=== PATIENT | female | born 1980 | race Caucasian/White ===

== ENCOUNTER 2022-11-09 13:52 | Inpatient (IN) | payer MEDICAID ==
[~2022-11-09] VITALS: Ht 162.6 cm; Wt 57.6 kg
[2022-11-09 13:58] VITALS: BP 126/76
--- NOTE | 2022-11-09 14:11 | NUR ---
AMB TO BED 10
[2022-11-09] MEDS ORDERED: NACL 0.9% 1,000 ML IV SCH (14:20)
--- NOTE | 2022-11-09 14:20 | NUR ---
42 yo/f biba w c/o of feelinig faint but did not faint, + x4 episodes of vomiting w sob, +dizziness, + gen weak. denies chest pain, ongoing nausea. pt adds yesterday she had a fever, and flu like symptoms none today. vss. pmh:denies allergies: penicillin home albuterol treatment at approx 1230 today. Addendum: 11/09/22 at 1656 by [email or web address] pt aox4, vss.
[2022-11-09] MEDS ORDERED: ONDANSETRON 4 MG/2 ML VIAL IVP ONE (14:55)
[2022-11-09 15:08] LABS: BILIRUBIN,URINE NEGATIVE (NEGATIVE); BLOOD, URINE 3+ (NEGATIVE); COLOR,URINE YELLOW (YELLOW); LEUKOCYTE ESTERASE ,URINE 1+ (NEGATIVE); NITRITE, URINE NEGATIVE (NEGATIVE); UGLUCOSE NEGATIVE (NEGATIVE)
[2022-11-09 15:11] LABS: ANION GAP 12.1 (8-16); CREATININE 0.7 mg/dL (0.6-1.3); POTASSIUM 3.1 mmol/L (3.5-5.1); TOTAL BILIRUBIN 0.4 mg/dL (0.0-1.0)
[2022-11-09 15:13] LABS: APPEARANCE,URINE HAZY (CLEAR)
--- NOTE | 2022-11-09 15:16 | NUR ---
COVID AND FLU SENT TO LAB.
[2022-11-09 15:36] LABS: BASOPHILS # (AUTO) 0.1 K/uL (0.00-0.22); BASOPHILS % (AUTO) 0.6 % (0.0-2.0); EOSINOPHILS # (AUTO) 0.2 K/uL (0-0.4); EOSINOPHILS % (AUTO) 1.7 % (0.0-4.0); HEMATOCRIT 31.3 % (36-48); LYMPHOCYTES # (AUTO) 1.2 K/uL (2.5-16.5); LYMPHOCYTES % (AUTO) 12.2 % (20.5-51.1); MEAN CORPUSCULAR HEMOGLOBIN 25 pg (27-31); MEAN CORPUSCULAR HGB CONC 32 g/dL (33-37); MEAN CORPUSCULAR VOLUME 77.3 fL (80-94); MONOCYTES # (AUTO) 0.5 K/uL (0.8-1.0); MONOCYTES % (AUTO) 5.4 % (1.7-9.3); NEUTROPHILS # (AUTO) 7.8 K/uL (1.8-7.7); NEUTROPHILS % (AUTO) 80.1 % (42.2-75.2); PLATELET COUNT (AUTO) 384 K/uL (140-450); RED BLOOD CELL COUNT(AUTO) 4.05 MIL/uL (4.20-5.40); WHITE BLOOD COUNT (AUTO) 9.7 K/uL (4.8-10.8)
[2022-11-09 15:41] LABS: RBC,URINE 50-80 /HPF (0-5)
[2022-11-09] MEDS ORDERED: POTASSIUM CHLORIDE 20% 40 MEQ/15 ML UDC PO ONE (15:50)
[2022-11-09] MEDS ORDERED: NACL 0.9% 1,000 ML IV ONE (16:55)
[2022-11-09] MEDS ORDERED: cefTRIAXone 1,000 MG VIAL ONE (17:29)
[2022-11-09] MEDS ORDERED: LEVOFLOXACIN 750 MG/D5W PREMIX 150 ML IV ONE (17:40)
[2022-11-09] MEDS ORDERED: MORPHINE SULFATE 2 MG/ML SYR IVP PRN (18:00)
[2022-11-09] MEDS ORDERED: POTASSIUM CHLORIDE 10 MEQ TABER PO PRN (18:00)
[2022-11-09] MEDS ORDERED: ONDANSETRON 4 MG/2 ML VIAL IVP PRN (18:00)
[2022-11-09] MEDS ORDERED: ACETAMINOPHEN 325 MG TAB PO PRN (18:00)
[2022-11-09] MEDS ORDERED: ZOLPIDEM 10 MG TAB PO PRN (18:00)
[2022-11-09] MEDS ORDERED: LORazepam 2 MG/ML VIAL IVP PRN (18:00)
[2022-11-09] MEDS ORDERED: MAG SULF 2000 MG/WATER PREMIX 50 ML IV PRN (18:00)
[2022-11-09] MEDS ORDERED: DOCUSATE SODIUM 100 MG GELCAP PO PRN (18:00)
[2022-11-09] MEDS: NACL 0.9% 1,000 ML IV SCH (19:05)
--- NOTE | 2022-11-09 19:19 | NUR ---
pt report given to gino manuel.
--- NOTE | 2022-11-09 20:10 | NUR ---
Report given to Luna STINSON
[2022-11-09 20:50] VITALS: BP 142/62
--- NOTE | 2022-11-09 20:50 | NUR ---
RECEIVED PT AAOX4 , FROM ER/ [facility] , AMBULATES TO BED , DENIES N/V AT THIS TIME , DENIES PAIN AT THIS TIME , ADMISSION ASSESSMENT - WILL BE DONE , PT HAS C/O DIZZINESS PRIOR TO ADM , BUT SHE DENIES IT AT THIS TIME , PUT PT ON FALL RISK PREVENTION PROTOCOL - STANDBY ASSIST FOR SAFETY , REMINDS PT. USE THE CALL LIGHT WHEN SHE NEED TO GO TO REST ROOM IF SHE HAS DIZZINESS - PT VERBALIZES UNDERSTANDING , CALL LIGHT WITHIN REACH , AFEBRILE , BUT BIT ST ON TELE MONITOR , WILL CONT. TO MONITOR .
[2022-11-10] VITALS: BP 125/60
--- NOTE | 2022-11-10 00:45 | NUR ---
ORAL POTASSIUM GIVEN TO ER PRIOR TO FLOOR , DR. LUO UPDATED ABOUT PT'S SERUM ELECTROLYTES
--- NOTE | 2022-11-10 00:45 | NUR ---
PT WAS GIVEN WATER PER PT REQUEST. NO COMPLAIN OF PAIN AT THIS TIME. NO S/S OF RESPIRATORY DISTRESS NOTED. ALL SAFETY MEASURES IMPLEMENTED. BED IN LOW POSITION, BED WHEELS ON LOCK AND CALL LIGHT WITHIN REACH. Addendum: 11/11/22 at 0046 by Whit Tracey RN WRONG TIME
--- NOTE | 2022-11-10 02:00 | NUR ---
ASSIST TO RESTROOM , VOIDED FREELY NO COMPLAIN MADE AT THIS TIME , WILL CONT. TO MONITOR , CALL LIGT WITHIN REACH .
[2022-11-10 04:00] VITALS: BP 118/65
--- NOTE | 2022-11-10 04:00 | NUR ---
NO COMPLAIN MADE , CALL LIGHT WITHIN REACH . WILL CONT. TO MONITOR
--- NOTE | 2022-11-10 06:00 | NUR ---
RESTING ON BED , ON TELE MONITOR , CALL LIGHT WITHIN REACH .
[2022-11-10] MEDS: NACL 0.9% 1,000 ML IV SCH ×2 (06:33→14:13)
[2022-11-10 07:05] LABS: ANION GAP 9.6 (8-16); CREATININE 0.5 mg/dL (0.6-1.3); POTASSIUM 3.6 mmol/L (3.5-5.1)
[2022-11-10 07:08] LABS: BASOPHILS # (AUTO) 0.1 K/uL (0.00-0.22); BASOPHILS % (AUTO) 0.6 % (0.0-2.0); EOSINOPHILS # (AUTO) 0.4 K/uL (0-0.4); EOSINOPHILS % (AUTO) 3.9 % (0.0-4.0); HEMATOCRIT 28.6 % (36-48); HEMOGLOBIN 9.2 g/dL (12.0-16.0); LYMPHOCYTES # (AUTO) 2.7 K/uL (2.5-16.5); LYMPHOCYTES % (AUTO) 26.1 % (20.5-51.1); MEAN CORPUSCULAR HEMOGLOBIN 25 pg (27-31); MEAN CORPUSCULAR HGB CONC 32 g/dL (33-37); MEAN CORPUSCULAR VOLUME 78.4 fL (80-94); MONOCYTES # (AUTO) 0.9 K/uL (0.8-1.0); MONOCYTES % (AUTO) 8.4 % (1.7-9.3); NEUTROPHILS # (AUTO) 6.2 K/uL (1.8-7.7); PLATELET COUNT (AUTO) 323 K/uL (140-450); RED BLOOD CELL COUNT(AUTO) 3.64 MIL/uL (4.20-5.40); RED CELL DISTRIBUTION WIDTH 16.1 % (11.6-13.7); WHITE BLOOD COUNT (AUTO) 10.2 K/uL (4.8-10.8)
--- NOTE | 2022-11-10 07:11 | NUR ---
AWAKE , ENDORSED FOR CONT. OF CARE .
[2022-11-10 08:00] VITALS: BP 115/78
--- NOTE | 2022-11-10 09:00 | NUR ---
PATIENT HAS BEEN SCREENED AND CATEGORIZED LOW NUTRITION RISK. PATIENT WILL BE SEEN WITHIN 7 DAYS OF ADMISSION. 11/16/[address] REVIEWED BY DARA [address] RD
[2022-11-10 16:00] VITALS: BP 116/59
--- NOTE | 2022-11-10 16:07 | NUR ---
DC PLANNING ASSESSMENT COMPLETE PLEASE REFER TO ASSESSMENT FOR ADDITIONAL DETAILS MET WITH PT AT BEDSIDE TO COMPLETE ASSESSMENT. PT IS A 42 YR OLD FEMALE ADMITTED TO [facility] FROM HOME WITH DX OF UTI. PT REPORTS LAST VISIT WITH PCP IN 2018. PT REFERRED TO [facility], ENCOURAGED PT TO PROVIDE ALL NECESSARY DOCUMENTS REQUESTED BY [facility] IN ORDER TO OBTAIN FULL SCOPE MEDICAL. PT REPORTED TO BE INDEPENDENT IN ALL ACTIVITIES AND DENIES USE OF DME. PT RESIDES IN AN APT WITH HER , AT THE ADDRESS LISTED ON FILE PT REFERRED TO [facility], ENCOURAGED PT TO PROVIDE ALL NECESSARY DOCUMENTS REQUESTED BY [facility] IN ORDER TO OBTAIN FULL SCOPE MEDICAL. PT REPORTS DC PLAN IS TO RETURN HOME WITH PROVIDING TRANSPORTATION, ONCE MEDICALLY STABLE TO DC. Addendum: 11/10/22 at 1609 by Hal MATA Amended: Links added.
--- NOTE | 2022-11-10 19:22 | NUR ---
ENDORSE PATIENT IN STABLE CONDITION TO PM SHIFT NURSE WHILE NS INFUSING @100ML/HR VIA LAC PIV SITE.
--- NOTE | 2022-11-10 19:23 | NUR ---
RECEIVED PT FROM MORNING SHIFT NURSE. PT IS AOX4, LAO SPEAKING, ABLE TO VERBALIZE NEEDS AND ABLE TO FOLLOW COMMANDS. PT IS AMBULATORY, ON ROOM AIR AND ON REGULAR DIET. PT HAS IV ON LEFT AC GAUGE 18, RUNNING WITH NS AT 100ML/HR. PT SKIN IS INTACT. NO COMPLAIN OF PAIN AND NO S/S OF RESPIRATORY DISTRESS NOTED. ALL SAFETY MEASURES IMPLEMENTED. BED IN LOW POSITION, BED WHEELS ON LOCK AND CALL LIGHT WITHIN REACH.
--- NOTE | 2022-11-10 20:10 | NUR ---
SCHEDULED AND PRESCRIBED MEDICATION WAS GIVEN TO PT PER MD ORDER. ALL SAFETY MEASURES IMPLEMENTED. BED IN LOW POSITION, BED WHEELS ON LOCK AND CALL LIGHT WITHIN REACH.
[2022-11-10] MEDS ORDERED: LEVOFLOXACIN 500 MG/D5W PREMIX 100 ML IV SCH (21:00)
--- NOTE | 2022-11-10 22:00 | NUR ---
PT WAS GIVEN WATER PER PT REQUEST. NO COMPLAIN OF PAIN AT THIS TIME. NO S/S OF RESPIRATORY DISTRESS NOTED. ALL SAFETY MEASURES IMPLEMENTED. BED IN LOW POSITION, BED WHEELS ON LOCK AND CALL LIGHT WITHIN REACH.
--- NOTE | 2022-11-11 | NUR ---
PT IS ON SLEEP. CHEST RISE AND FALL SYMMETRICALLY NOTED. RESPIRATION IS EVEN AND UNLABORED. NO S/S OF RESPIRATORY DISTRESS NOTED. ALL SAFETY MEASURES IMPLEMENTED. BED IN LOW POSITION, BED WHEELS ON LOCK AND CALL LIGHT WITHIN REACH.
[2022-11-11] MEDS: NACL 0.9% 1,000 ML IV SCH ×2 (00:28→10:22)
--- NOTE | 2022-11-11 02:00 | NUR ---
CHECKED THE PT, STILL ON SLEEP. CHEST RISE AND FALL SYMMETRICALLY NOTED. RESPIRATION IS EVEN AND UNLABORED. NO S/S OF RESPIRATORY DISTRESS NOTED. ALL SAFETY MEASURES IMPLEMENTED. BED IN LOW POSITION, BED WHEELS ON LOCK AND CALL LIGHT WITHIN REACH.
[2022-11-11 04:00] VITALS: BP 110/69
[2022-11-11 06:14] LABS: BASOPHILS # (AUTO) 0.1 K/uL (0.00-0.22); BASOPHILS % (AUTO) 0.9 % (0.0-2.0); EOSINOPHILS # (AUTO) 0.4 K/uL (0-0.4); EOSINOPHILS % (AUTO) 3.6 % (0.0-4.0); HEMATOCRIT 28.3 % (36-48); LYMPHOCYTES # (AUTO) 2.7 K/uL (2.5-16.5); LYMPHOCYTES % (AUTO) 23.4 % (20.5-51.1); MEAN CORPUSCULAR HEMOGLOBIN 25 pg (27-31); MEAN CORPUSCULAR HGB CONC 32 g/dL (33-37); MEAN CORPUSCULAR VOLUME 78.8 fL (80-94); MONOCYTES # (AUTO) 0.8 K/uL (0.8-1.0); MONOCYTES % (AUTO) 6.7 % (1.7-9.3); NEUTROPHILS # (AUTO) 7.6 K/uL (1.8-7.7); NEUTROPHILS % (AUTO) 65.4 % (42.2-75.2); PLATELET COUNT (AUTO) 342 K/uL (140-450); RED BLOOD CELL COUNT(AUTO) 3.59 MIL/uL (4.20-5.40); RED CELL DISTRIBUTION WIDTH 15.7 % (11.6-13.7); WHITE BLOOD COUNT (AUTO) 11.7 K/uL (4.8-10.8)
[2022-11-11 06:37] LABS: CARBON DIOXIDE 25.6 mmol/L (21-32); CREATININE 0.6 mg/dL (0.6-1.3); POTASSIUM 3.6 mmol/L (3.5-5.1)
--- NOTE | 2022-11-11 07:08 | NUR ---
PT IS STABLE. ENDORSED PT TO MORNING SHIFT NURSE FOR CONTINUITY OF CARE.
--- NOTE | 2022-11-11 07:10 | NUR ---
ASSUMED CONTINUITY OF CARE. INITIAL ASSESSMENT DONE. EXPLAINED USE OF CALL LIGHT/BED/TV/BATHROOM. VERBALIZED UNDERSTANDING. CALL LIGHT WITHIN REACH.
[2022-11-11 08:00] VITALS: BP 106/67
[2022-11-11] MEDS ORDERED: DOCU-299 PO (11:30)
[2022-11-11] MEDS ORDERED: LEVO-481 PO (11:30)
--- NOTE | 2022-11-11 15:45 | NUR ---
D/C HOME VIA WHEELCHAIR ACCOMPANIED BY PT. BEN. IN STABLE CONDITION. INFORMED CHARGE NURSE HARIKA MARTÍNEZ.
== END 2022-11-11 15:45 | disposition home or self-care (01) | DRG 463 ==
LOC: MED 13:52 → MTU 18:00
PROVIDERS: ADMIT Family Medicine; ATTEND Family Medicine
DX: N39.0 Urinary tract infection, site not specified (principal); E83.51 Hypocalcemia; D64.9 Anemia, unspecified; K59.00 Constipation, unspecified; Z88.0 Allergy status to penicillin; Z20.822 Contact with and (suspected) exposure to COVID-19
CPT/HCPCS: 36415; 71045; 80048; 80053; 81001; 82550; 83605; 83735; 83880; 84484; 85025; 85379; 87040; 87081; 87086; 87186; 93005; 96361; 96365; 99285; J0696; J1956

== ENCOUNTER 2022-11-22 01:56 | Emergency (ER) | payer MEDICAID ==
[~2022-11-22] VITALS: Ht 160 cm; Wt 68.0 kg
[~2022-11-22 01:56] MED LIST: DOCU-299 PO; LEVO-481 PO
[2022-11-22 02:05] VITALS: BP 127/76
--- NOTE | 2022-11-22 02:09 | NUR ---
TO LOBBY A/W BED AMBULATORY
--- NOTE | 2022-11-22 02:25 | NUR ---
DIARRHEA, MOUTH DRY, GEN WEAKESS , CHILLS, 3 HOURS AGO. PT IS [employer].
[2022-11-22 03:35] LABS: BASOPHILS # (AUTO) 0.1 K/uL (0.00-0.22); BASOPHILS % (AUTO) 0.8 % (0.0-2.0); EOSINOPHILS # (AUTO) 0.1 K/uL (0-0.4); HEMATOCRIT 31.9 % (36-48); HEMOGLOBIN 10.1 g/dL (12.0-16.0); LYMPHOCYTES # (AUTO) 2.1 K/uL (2.5-16.5); LYMPHOCYTES % (AUTO) 15.6 % (20.5-51.1); MEAN CORPUSCULAR HEMOGLOBIN 25 pg (27-31); MEAN CORPUSCULAR HGB CONC 32 g/dL (33-37); MEAN CORPUSCULAR VOLUME 78.1 fL (80-94); MONOCYTES # (AUTO) 0.5 K/uL (0.8-1.0); MONOCYTES % (AUTO) 4.1 % (1.7-9.3); NEUTROPHILS # (AUTO) 10.5 K/uL (1.8-7.7); NEUTROPHILS % (AUTO) 78.5 % (42.2-75.2); PLATELET COUNT (AUTO) 502 K/uL (140-450); RED BLOOD CELL COUNT(AUTO) 4.08 MIL/uL (4.20-5.40); RED CELL DISTRIBUTION WIDTH 16.7 % (11.6-13.7); WHITE BLOOD COUNT (AUTO) 13.4 K/uL (4.8-10.8)
[2022-11-22 03:59] LABS: ALBUMIN 3.9 g/dL (3.4-5.0); ANION GAP 17.2 (8-16); CARBON DIOXIDE 21.9 mmol/L (21-32); CREATININE 0.6 mg/dL (0.6-1.3); POTASSIUM 4.1 mmol/L (3.5-5.1); TOTAL BILIRUBIN 0.3 mg/dL (0.0-1.0)
--- NOTE | 2022-11-22 04:11 | NUR ---
PT TAKEN TO BED 9
[2022-11-22] MEDS ORDERED: NACL 0.9% 1,000 ML IV ONE (05:00)
[2022-11-22 05:33] LABS: APPEARANCE,URINE CLEAR (CLEAR); BILIRUBIN,URINE NEGATIVE (NEGATIVE); BLOOD, URINE 3+ (NEGATIVE); COLOR,URINE YELLOW (YELLOW); LEUKOCYTE ESTERASE ,URINE NEGATIVE (NEGATIVE); NITRITE, URINE NEGATIVE (NEGATIVE); PH,URINE 5.5 (5.0-9.0); UGLUCOSE NEGATIVE (NEGATIVE)
[2022-11-22 05:35] LABS: WBC,URINE 0-5 /HPF (0-5)
--- NOTE | 2022-11-22 06:15 | NUR ---
pt said that she allergic to penicilin. Dr. Alfaro was notified and he said to go ahead
[2022-11-22] MEDS ORDERED: cefTRIAXone 1,000 MG VIAL ONE (06:28)
[2022-11-22] MEDS ORDERED: NITR100C7 PO (06:34)
[2022-11-22 07:13] VITALS: BP 127/76
--- NOTE | 2022-11-22 07:15 | NUR ---
Patient discharged with v/s stable. Written and verbal after care instructions given and explained. Patient verbalized understanding. Ambulatory with steady gait. All questions addressed prior to discharge. Advised to follow up with PMD. Pt left with her kathi
== END 2022-11-22 07:15 | disposition home or self-care (01) ==
LOC: MED 01:56
DX: N39.0 Urinary tract infection, site not specified (principal); Z79.899 Other long term (current) drug therapy; Z79.2 Long term (current) use of antibiotics; Z88.0 Allergy status to penicillin
CPT/HCPCS: 36415; 80053; 81001; 81025; 85025; 87086; 96365; 99284; J0696